=== PATIENT | female | born 2000 | race Caucasian/White ===

== ENCOUNTER 2019-02-04 02:06 | Emergency (ER) | payer SELFPAY ==
--- NOTE | 2019-02-04 02:17 | ER Report ---
History and Physical Time Seen By MD: 02:15 Hx. of Stated Complaint: PATIENT STATES RIGHT UPPER SIDE PAIN HPI/ROS CHIEF COMPLAINT: right chest/rib pain HISTORY OF PRESENT ILLNESS: This is a 18 year old who identifies as a male. Pain in right ribs, under the breast area. Worsens with movement or deep breaths. Worsening this evening. No fevers or chills. No abdominal pain. No nausea or vomiting. Normal bowel and bladder function. Allergies: Coded Allergies: Penicillins (Verified Allergy, Severe, ANAPHYLAXIS, 02/04/19) Home Meds Active Scripts Hydrocodone Bit/Acetaminophen (HYDROCODON-ACETAMINOPHEN 5-325) 1 Each Tablet, 1 EACH PO Q4H PRN for PAIN, #8 TAB 0 Refills Prov:CORTEZ IVEY MD 02/04/19 Reported Medications Testosterone Cypionate (TESTOSTERONE CYPIONATE) 200 Mg/1 Ml Vial, 200 MG IM QWK, VIAL 02/04/19 Reviewed Nurses Notes: Yes Constitutional Vital Sign - Last 24 Hours 02/04/19 02/04/19 02/04/19 02/04/19 02:06 02:10 02:11 02:30 Temp 98.4 Pulse ??? 129 Resp 15 B/P (MAP) 141/100 (114) 141/100 120/84 (96) Pulse Ox 81 91 O2 Delivery Room Air 02/04/19 02/04/19 02/04/19 02/04/19 02:36 03:06 03:11 03:41 Pulse 114 106 98 105 Pulse Ox 94 94 94 94 02/04/19 02/04/19 02/04/19 02/04/19 03:46 04:00 04:16 04:30 Pulse 97 98 B/P (MAP) 115/78 (90) 112/62 (79) Pulse Ox 95 02/04/19 02/04/19 02/04/19 04:35 05:00 05:05 Pulse 90 89 B/P (MAP) 110/69 (83) Pulse Ox 94 92 Intake and Output 0 02/03/19 02/03/19 02/04/19 15:02 23:02 07:02 Intake Total 1000 ml Balance 1000 ml Physical Exam General Appearance: The patient is alert. No acute distress. Non-toxic in appearance. Eyes: Pupils are equal, round. No pallor, injection or icterus. ENT: Mucous membranes are moist. Normal oral mucosa. Neck: Supple and non tender. Respiratory: Lungs are clear to auscultation. Pain with deep respirations. There are no retractions or accessory muscle use. Cardiovascular: Regular rate and rhythm. No murmurs, gallops or rubs. Normal capillary refill. Gastrointestinal: Abdomen is soft and non tender. Nondistended. Normal active bowel sounds. Neurological: Alert and oriented x3. No focal neurologic deficits Skin: Warm and dry. No rashes. Musculoskeletal: Extremities are nontender. Pain with palpation over chest wall, reproducing pain. No tenderness in palpation of the cervical, thoracic and lumbar spine. DIFFERENTIAL DIAGNOSIS: After history and physical exam, differential diagnosis was considered for chest pain including but not limited to myocardial ischemia, pericarditis pulmonary embolus, chest wall pain, pleural inflammation and pulm onary infectious causes. Medical Decision Making Data Points Result Diagram: 02/04/19 0245 02/04/19 0245 Laboratory Hematology Test 02/04/19 02:45 White Blood Count 9.8 k/uL (4.5-11.0) Red Blood Count 5.24 M/uL (4.17-5.56) Hemoglobin 15.5 g/dL (12.0-16.0) Hematocrit 45.3 % (34.0-47.0) Mean Corpuscular Volume 86.4 fL (80.0-96.0) Mean Corpuscular Hemoglobin 29.5 pg (26.0-33.0) Mean Corpuscular Hemoglobin Concent 34.1 g/dL (32.0-36.0) Red Cell Distribution Width 12.9 % (11.5-14.5) Platelet Count 365 K/uL (150-450) Mean Platelet Volume 7.9 fL (7.2-11.1) Neutrophils (%) (Auto) 60.1 % (39.4-72.5) Lymphocytes (%) (Auto) 29.9 % (17.6-49.6) Monocytes (%) (Auto) 6.1 % (4.1-12.4) Eosinophils (%) (Auto) 3.0 % (0.4-6.7) Basophils (%) (Auto) 0.9 % (0.3-1.4) Nucleated RBC Relative Count (auto) 0.0 /100WBC Neutrophils # (Auto) 5.9 K/uL (2.0-7.4) Lymphocytes # (Auto) 2.9 K/uL (1.3-3.6) Monocytes # (Auto) 0.6 K/uL (0.3-1.0) Eosinophils # (Auto) 0.3 K/uL (0.0-0.5) Basophils # (Auto) 0.1 K/uL (0.0-0.1) Nucleated RBC Absolute Count (auto) 0.00 K/uL Erythrocyte Sedimentation Rate 44 mm/HOUR (0-20) H Chemistry Test 02/04/19 02:45 Sodium Level 138 mmol/L (137-145) Potassium Level 3.7 mmol/L (3.5-5.0) Chloride Level 103 mmol/L (98-107) Carbon Dioxide Level 22 mmol/L (22-31) Blood Urea Nitrogen 16 mg/dl (7-18) Creatinine 1.00 mg/dl (0.52-1.04) Glomerular Filtration Rate Calc > 60.0 Random Glucose 100 mg/dl (75-110) Calcium Level 9.4 mg/dl (8.4-10.2) Total Bilirubin 0.5 mg/dl (0.2-1.3) Aspartate Amino Transf (AST/SGOT) 22 U/L (0-35) Alanine Aminotransferase (ALT/SGPT) 40 U/L (0-56) Alkaline Phosphatase 76 U/L (0-126) Troponin I < 0.012 ng/ml C-Reactive Protein 2.8 mg/dl (<1.0) Total Protein 7.9 g/dl (6.3-8.2) Albumin 4.4 g/dl (3.5-5.0) Amylase Level 70 U/L (0-110) Lipase 46 U/L (23-300) Coagulation Test 02/04/19 02:45 D-Dimer Quantitative (PE/DVT) < 0.27 ug/ml (0-0.50) EKG/Imaging EKG Interpretation 12 lead EKG: Rhythm: Sinus tachycardia, rate 109 Anna: normal QRS: normal ST segments: normal Imaging CHEST PA AND LAT HISTORY: Anterior right chest pain for one day. COMPARISON: None. TECHNIQUE: PA and lateral views of the chest. FINDINGS: PULMONARY/PLEURA: Lungs are clear. There is no pneumothorax or pleural effusion. CARDIOMEDIASTINAL: Cardiac and mediastinal silhouettes are within normal limits. BONES/SOFT TISSUES: No acute osseous abnormality. The visible abdomen is normal. IMPRESSION: 1. No acute cardiopulmonary process. Report Dictated By: Cierra Victor at 02/04/2019 3:10 AM ED Course/Re-evaluation Clinical Indication for ER IV: Hydration, IV Access ED Course Patient with normal labs other than sedimentation rate and CRP. X-ray negative and EKG negative. This appears to be pleuritic chest pain and reviewed this with the patient, either pleurisy or chest wall inflammation. Recommended use of ibuprofen. Because of much pain, also added some Lortab to use for pain relief. Decision to Disposition Date: Feb 04, 2019 Decision to Disposition Time: 04:31 Depart Departure Latest Vital Signs Vital Signs Date Time Temp Pulse Resp B/P (MAP) Pulse Ox O2 Delivery O2 Flow Rate FiO2 02/04/19 05:05 89 92 02/04/19 05:00 110/69 (83) 02/04/19 02:11 98.4 15 Room Air Impression: Primary Impression: Pleurisy Condition: Improved Disposition: HOME OR SELF-CARE New Scripts Hydrocodone Bit/Acetaminophen (HYDROCODON-ACETAMINOPHEN 5-325) 1 Each Tablet 1 EACH PO Q4H PRN for PAIN, #8 TAB 0 Refills Prov: CORTEZ IVEY MD 02/04/19 Patient Instructions: Pleurisy (ED) Additional Instructions: Ibuprofen 200mg over the counter tablets, take 4 tablets three times a day with food. Lortab 5/325, one every 4 hours as needed for pain. Increase fluid intake over the next few days. Make an appointment to follow up with your primary care provider CORTEZ IVEY MD Feb 04, 2019 02:17
[2019-02-04] MEDS ORDERED: TEST200V IM (02:18)
[2019-02-04] MEDS ORDERED: ASPIRIN 81 MG CHEW PO ONE (02:35)
[2019-02-04] MEDS ORDERED: NS(*) 0.9% 1000 ML BAG 1,000 ML IV ONE ×2 (02:35→04:20)
--- NOTE | 2019-02-04 02:57 | EKG ---
[place] [facility] [place] JUNE REY : [id number] MR: [id number] V: [id number] EXAM DATE: ORDERING PHYSICIAN: CORTEZ IVEY TECHNOLOGIST: JOLEEN Test Reason : right sided CP Blood Pressure : / mmHG Vent. Rate : 109 BPM Atrial Rate : 109 BPM P-R Int : 146 ms QRS Dur : 086 ms QT Int : 330 ms P-R-T Axes : 040 096 028 degrees QTc Int : 444 ms Sinus tachycardia Right axis deviation-mild. Non-specific T wave flattening V2-3. No previous ECGs available Confirmed by CAROL SERRANO ([id number]) on 02/04/2019 4:51:36 AM Referred By: UCHE Confirmed By:CAROL SERRANO
[2019-02-04 02:59] LABS: PLATELET COUNT, AUTOMATED 365 K/uL (150-450)
--- NOTE | 2019-02-04 03:23 | RADIOLOGY IMAGING REPORT ---
FACILITY: [facility] - [place] PATIENT NAME: Sanju Ortiz : 2000 MR: [id number] V: [id number] EXAM DATE: ORDERING PHYSICIAN: CORTEZ IVEY TECHNOLOGIST: Location: [facility] Patient: Sanju Ortiz : 2000 Visit/Account:[id number] Date of Sevice: 02/04/2019 CHEST PA AND LAT HISTORY: Anterior right chest pain for one day. COMPARISON: None. TECHNIQUE: PA and lateral views of the chest. FINDINGS: PULMONARY/PLEURA: Lungs are clear. There is no pneumothorax or pleural effusion. CARDIOMEDIASTINAL: Cardiac and mediastinal silhouettes are within normal limits. BONES/SOFT TISSUES: No acute osseous abnormality. The visible abdomen is normal. IMPRESSION: 1. No acute cardiopulmonary process. Report Dictated By: Cierra Victor at 02/04/2019 3:10 AM Report E-Signed By: Cierra Victor at 02/04/2019 3:12 AM WSN:[id number]
[2019-02-04] MEDS ORDERED: IBUPROFEN 800 MG TAB PO ONE (04:20)
[2019-02-04] MEDS ORDERED: APAP/HYDROCODONE 325/5 TAB PO ONE (04:20)
[2019-02-04] MEDS ORDERED: ACET/HYDROC 5/325MG TH ER ONLY 2 TAB/BOTTLE PO ONE (04:20)
[2019-02-04] MEDS ORDERED: LOR5/325 PO (04:35)
[2019-02-04 05:00] VITALS: BP 110/69
== END 2019-02-04 05:22 | disposition home or self-care (01) ==
LOC: ER 02:17
DX: R09.1 Pleurisy (principal)
CPT/HCPCS: 71046; 82150; 83690; 84484; 85025; 85379; 85651; 86140; 93005; 96360; 96361; 99283; J7030; 82040; 82247; 82310; 82374; 82435; 82565; 82947; 84075; 84132; 84155; 84295; 84450; 84460; 84520